=== PATIENT | female | born 2005 | race Caucasian/White ===

== ENCOUNTER → 2025-06-19 | Outpatient (REF) | payer OTHER | LOC: M PLALAB 08:37 | PROVIDERS: ATTEND Nurse Practitioner Family | DX: Z53.9 Procedure and treatment not carried out, unspecified reason (principal) ==

== ENCOUNTER → 2025-06-19 | Outpatient (CLI) | payer OTHER ==
[2025-06-19 12:20] LABS: PLATELET COUNT, AUTOMATED 414 10^3/uL (150-450)
[2025-06-19 15:03] LABS: GC DNA AMPLIFICATION NEGATIVE (NEGATIVE); Trichomonas vaginalis (AMP) NOT DETECTED (NEGATIVE)
[2025-06-19 15:48] LABS: HIV 1&2 SCREEN NEGATIVE (NEGATIVE)
[2025-06-19 15:56] LABS: HEPATITIS C VIRUS ABY INDEX 0.02 INDEX (<0.8)
== END ==
LOC: M PLALAB 09:01
PROVIDERS: ATTEND Nurse Practitioner Family
DX: Z34.80 Encounter for supervision of other normal pregnancy, unspecified trimester (principal)

== ENCOUNTER → 2025-06-22 | Outpatient (CLI) | payer OTHER ==
[2025-06-22 11:35] LABS: IRON (FE) 11 UG/DL (50-170); PERCENT SATURATION 2.8 % (13.2-45.0)
[2025-06-22 11:37] LABS: VITAMIN B12 LEVEL 341 PG/ML (211-911)
[2025-06-27 02:32] LABS: HEMOGLOBINOPATHY EVAL HCT 29.9 % (35.0-45.0); HEMOGLOBINOPATHY EVAL HGB 7.2 g/dL (11.7-15.5); HEMOGLOBINOPATHY EVAL HGB A 98.1 % (>96.0); HEMOGLOBINOPATHY EVAL HGB A2 1.9 % (2.0-3.2); HEMOGLOBINOPATHY EVAL HGB F 0.0 % (<2.0); HEMOGLOBINOPATHY EVAL MCH 15.1 pg (27.0-33.0); HEMOGLOBINOPATHY EVAL MCV 62.6 fL (80.0-100.0); HEMOGLOBINOPATHY EVAL RBC 4.78 Mill/uL (3.80-5.10); HEMOGLOBINOPATHY EVAL RDW 20.1 % (11.0-15.0)
== END ==
LOC: M PLALAB 08:06
PROVIDERS: ATTEND Nurse Practitioner Family
DX: O99.012 Anemia complicating pregnancy, second trimester (principal)

== ENCOUNTER 2025-07-18 14:04 | Outpatient (CLI) | payer MEDICAID, OTHER ==
[~2025-07-18] VITALS: Ht 172.7 cm; Wt 84.0 kg
[~2025-07-18 14:04] MED LIST: ALBUTEROL SULFATE 2.5 MG/0.5 ML INH CONCENTRATE NEB SOLN INH PRN; EPINEPHrine INJ 1 MG/ML 1ML AMP IM PRN; diphenhydrAMINE 50 MG/ML VIAL IV PRN
[2025-07-18 14:35] VITALS: BP 101/55; O2SAT 100
[2025-07-18] MEDS: ACETAMINOPHEN 650MG PO PRIOR TO INFUSION PO ONE (14:42)
[2025-07-18] MEDS: diphenhydrAMINE 25MG PO PRIOR TO INFUSION PO ONE (14:42)
[2025-07-18] MEDS: IRON SUCROSE 200MG IVP IV ONE (15:12)
[2025-07-18 16:08] VITALS: BP 105/57; O2SAT 100
== END 2025-07-18 16:10 | disposition home or self-care (01) ==
LOC: M INFU 14:04
PROVIDERS: ATTEND Nurse Practitioner Family
DX: D50.9 Iron deficiency anemia, unspecified (principal); O99.012 Anemia complicating pregnancy, second trimester
CPT/HCPCS: 96374; J1756

== ENCOUNTER 2025-07-25 14:00 | Outpatient (CLI) | payer MEDICAID, OTHER ==
[~2025-07-25] VITALS: Ht 172.7 cm; Wt 81.8 kg
[2025-07-25 14:15] VITALS: BP 104/56; O2SAT 99
[2025-07-25] MEDS: diphenhydrAMINE 25MG PO PRIOR TO INFUSION PO ONE (14:18)
[2025-07-25] MEDS: ACETAMINOPHEN 650MG PO PRIOR TO INFUSION PO ONE (14:18)
[2025-07-25] MEDS: IRON SUCROSE 200MG IVP IV ONE (14:19)
[2025-07-25 15:00] VITALS: BP 90/50; O2SAT 97
== END 2025-07-25 15:00 ==
LOC: M INFU 14:00
PROVIDERS: ATTEND Nurse Practitioner Family
DX: O99.012 Anemia complicating pregnancy, second trimester (principal); D50.9 Iron deficiency anemia, unspecified
CPT/HCPCS: 96374; J1756

== ENCOUNTER → 2025-08-16 | Outpatient (CLI) | payer OTHER ==
[2025-08-16 15:27] LABS: PLATELET COUNT, AUTOMATED 339 10^3/uL (150-450)
== END ==
LOC: M PLALAB 13:38
PROVIDERS: ATTEND Specialist
DX: Z34.02 Encounter for supervision of normal first pregnancy, second trimester (principal)

== ENCOUNTER → 2025-09-11 | Outpatient (CLI) | payer OTHER | LOC: M WHC 07:22 | PROVIDERS: ATTEND Student in an Organized Health Care Education/Training Program | DX: Z34.80 Encounter for supervision of other normal pregnancy, unspecified trimester (principal) ==